=== PATIENT | female | born 1935 | race Caucasian/White ===

== ENCOUNTER 2018-06-08 18:21 | Emergency (ER) | payer MEDICARE, OTHER ==
[~2018-06-08] VITALS: Ht 154.9 cm; Wt 60.8 kg
[2018-06-08 18:43] VITALS: BP 176/66
--- NOTE | 2018-06-08 19:16 | ER.PDOC ---
General Chief Complaint: Cough/Congestion Stated Complaint: COUGH,FEVER Time seen by MD: 19:14 Source: patient Exam Limitations: no limitations History of Present Illness Initial Comments Dry cough for 5 days Timing/Duration: gradual Severity: moderate Associated Symptoms: cough Allergies: Coded Allergies: Sulfa (Sulfonamide Antibiotics) (Unverified Allergy, Unknown, rash, ) Constitutional: no symptoms reported EENTM: no symptoms reported Respiratory: see HPI Cardiovascular: no symptoms reported Gastrointestinal: no symptoms reported Genitourinary: no symptoms reported All Other Systems: Reviewed and Negative Past Medical History Medical History: high cholesterol, hypertension, thyroid disease Surgical History: appendectomy, hip LMP (females 10-50): postmenopause Social History Smoking: non-smoker Alcohol Use: occassionally Drug Use: none Physical Exam General Appearance: alert, no distress Nose: nose nml Throat: pharynx nml, airway nml Neck: nml inspection, supple Respiratory: no resp.distress, breath sounds nml CVS: reg rate & rhythm, heart sounds nml Skin: color nml, no rash, warm/dry Extremities: non-tender, nml ROM, no pedal edema NEURO/PSYCH: oriented x 3, CN's nml as tested, motor nml, sensation nml, mood/ affect nml EKG/XRAY/CT/US XRAY: chest (No acute disease) Departure Time of Disposition: 19:32 Disposition: 01 HOME, SELF-CARE Impression: Primary Impression: URI, acute Condition: Stable Referrals: AGATA SERRANO (PCP) PRIMARY CARE PROVIDER Additional Instructions: Noe HICKEY F/U with your PCP next week Duration or Time Spent with Pa: 45 mins SINDHU FU MD Jun 08, 2018 19:16
--- NOTE | 2018-06-08 19:29 | DIREP ---
PROCEDURE:CHEST 2 VIEWS COMPARISON:None. INDICATIONS:Cough FINDINGS: LUNGS/PLEURA:Chronic appearing changes bilaterally with slight blunting of the lateral and posterior costophrenic angles bilaterally which could be related to mild pleural thickening and/or small pleural effusions. VASCULATURE:Normal. Unremarkable pulmonary vasculature. CARDIAC:Normal. No cardiac silhouette abnormality or cardiomegaly. MEDIASTINUM:Normal. No visible mass or adenopathy. BONES:Normal. No fracture or visible bony lesion. OTHER:Negative. CONCLUSION: 1. Chronic appearing changes bilaterally with slight blunting of the posterior and lateral costophrenic sulci consistent with mild pleural thickening and or small pleural effusions. Chest is otherwise normal with no acute infiltrates. Dictated by: Wilber Beasley M.D. on 06/08/2018 at 07:26 PM
[2018-06-08 19:46] VITALS: BP 176/66
== END 2018-06-08 19:39 | disposition home or self-care (01) ==
LOC: ER 18:21
DX: J06.9 Acute upper respiratory infection, unspecified (principal); E78.00 Pure hypercholesterolemia, unspecified; E07.9 Disorder of thyroid, unspecified; I10 Essential (primary) hypertension; Z88.2 Allergy status to sulfonamides; Z90.49 Acquired absence of other specified parts of digestive tract; Z98.890 Other specified postprocedural states
CPT/HCPCS: 71046; 99284